=== PATIENT | male | born 1965 | race Caucasian/White ===

== ENCOUNTER 2018-01-07 12:48 | Day surgery (SDC) | payer OTHER ==
[~2018-01-07 12:48] MED LIST: LIDOCAINE 2% INJ 100 MG/5 ML SDV (FOR ANES.) As Ordered; PROPOFOL 200 MG/20 ML VIAL As Ordered; ROCURONIUM BROMIDE 50 MG/5 ML VIAL As Ordered
[2018-01-07] MEDS ORDERED: ROPIvacaine 0.5% 30 ML INJECTION (J2795 PER 1MG) (12:49)
[2018-01-07] MEDS ORDERED: dexameTHASONE 10 MG/1 ML VIAL PRES.FREE (J1100) (12:49)
[2018-01-07] MEDS ORDERED: EPINEPHrine INJ 1 MG/ML 1ML AMP (12:49)
[2018-01-07] MEDS ORDERED: LR 1,000 ML IV ×3 (13:15→20:15)
[2018-01-07] MEDS ORDERED: MIDAZOLAM INJ 2 MG/2 ML VIAL (J2250) As Ordered (13:46)
[2018-01-07] MEDS ORDERED: fentaNYL 100 MCG/2 ML INJECTION (J3010) As Ordered ×2 (13:46→15:16)
[2018-01-07] MEDS: fentaNYL 100 MCG/2 ML INJECTION (J3010) IV (14:21)
[2018-01-07] MEDS: MIDAZOLAM INJ 2 MG/2 ML VIAL (J2250) IV (14:22)
[2018-01-07] MEDS: LIDOCAINE 1% MDV 20ML VIAL As Ordered (14:55)
[2018-01-07] MEDS: EPINEPHrine INJ 1 MG/ML 1ML AMP As Ordered ×2 (16:03→16:07)
[2018-01-07] MEDS ORDERED: NEOSTIGMINE 10 MG/10 ML VIAL (J2710) As Ordered ×2 (16:29→16:30)
[2018-01-07] MEDS ORDERED: GLYCOPYRROLATE INJ 0.2 MG/ML 2 ML VIAL As Ordered ×2 (16:29→19:15)
[2018-01-07] MEDS ORDERED: METOCLOPRAMIDE INJ 10MG/2ML VIAL (J2765) As Ordered (16:29)
[2018-01-07] MEDS ORDERED: ONDANSETRON 4MG/2ML VIAL (J2405) As Ordered (16:30)
[2018-01-07] MEDS ORDERED: ceFAZolin 1GM INJ (J0690 PER 500MG) As Ordered (19:13)
[2018-01-07] MEDS ORDERED: PROPOFOL 200 MG/20 ML VIAL As Ordered (19:13)
[2018-01-07] MEDS ORDERED: fentaNYL 100 MCG/2 ML INJECTION (J3010) IV (20:15)
[2018-01-07] MEDS ORDERED: ONDANSETRON 4MG/2ML VIAL (J2405) IV (20:15)
[2018-01-07] MEDS ORDERED: NORCO, ANEXSIA 5/325MG TABLET (HYDROcodone/ACETAMINOPHEN) PO (20:15)
== END 2018-01-07 21:35 | disposition home or self-care (01) ==
LOC: M SDC 12:48
DX: M75.120 Complete rotator cuff tear or rupture of unspecified shoulder, not specified as traumatic (principal); S43.491A Other sprain of right shoulder joint, initial encounter; M19.011 Primary osteoarthritis, right shoulder; I10 Essential (primary) hypertension; K21.9 Gastro-esophageal reflux disease without esophagitis; Z72.0 Tobacco use; X58.XXXA Exposure to other specified factors, initial encounter; Y92.89 Other specified places as the place of occurrence of the external cause; Y93.89 Activity, other specified; Y99.8 Other external cause status
CPT/HCPCS: 23430